=== PATIENT | female | born 2005 | race Caucasian/White ===

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

== ENCOUNTER 2024-04-01 11:59 | Emergency (ER) | payer OTHER ==
[~2024-04-01] VITALS: Ht 149.9 cm; Wt 52.6 kg
[2024-04-01] MEDS ORDERED: ACETAMINOPHEN 500 MG GEL..CAP PO STA (14:35)
[2024-04-01] MEDS ORDERED: 0.9 % SODIUM CHLORIDE 1,000 ML IV STA (14:35)
[2024-04-01 15:45] LABS: HEMATOCRIT 28.5 % (36.0-45.00); MEAN CELL VOLUME 90.4 fL (80.00-100.00); MEAN CORPUSCULAR HEMOGLOBIN 31.7 pg (27.00-32.0); MEAN CORPUSCULAR HGB CONC 35.1 g/dl (32.0-36.0); PLATELET COUNT 278 K/uL (150-450); RED BLOOD COUNT 3.15 M/uL (4.00-6.00); RED CELL DISTRIBUTION WIDTH 12.9 % (11.5-14.5)
[2024-04-01 16:05] LABS: PH,URINE 6.5 (5.0-8.0); URINE APPEARANCE Cloudy; URINE BILIRRUBIN Negative (NEGATIVE); URINE BLOOD Negative; URINE COLOR Yellow; URINE GLUCOSE Negative (NEGATIVE); URINE LEUKOCYTE Moderate; URINE NITRATE Negative; URINE PROTEIN Trace (NEGATIVE)
[2024-04-01 16:08] LABS: URINE EPITHELIAL CELLS 88.7 uL (0.0-38.8); URINE RBC 18.6 uL (0.0-20.8); URINE WBC 93.8 uL (0.0-23.2)
[2024-04-01 16:20] LABS: ALBUMIN 2.9 gm/dL (3.4-5.0); BILIRUBIN TOTAL 0.21 mg/dL (0.3-1.2); CALCIUM 8.4 mg/dL (8.5-10.1); CREATININE SERUM 0.4 mg/dL (0.55-1.02); GFR 205.62; GLOBULINA 3.8 G/DL (2.4-3.5); POTASSIUM 3.57 mEq/L (3.5-5.1); TOTAL PROTEIN 6.7 gm/dL (6.4-8.2); TSH 0.377 uIU/mL (0.358-3.74)
[2024-04-01 16:24] LABS: URINE BACTERIA > 9821.5 uL (0.0-1933); URINE CAST 0.91 uL (0.0-1.40); URINE KETONE >=160 (NEGATIVE)
[2024-04-01] MEDS ORDERED: CEFADROXIL500 MG PO (17:07)
[2024-04-01] MEDS ORDERED: CEFTRIAXONE SODIUM 1,000 MG VIAL IV ONE (17:15)
[2024-04-01 17:58] VITALS: BP 83/51; O2SAT 99
== END 2024-04-01 17:59 | disposition home or self-care (01) ==
LOC: ER 12:01
PROVIDERS: General Practice
DX: R53.81 Other malaise (principal); E86.0 Dehydration; N39.0 Urinary tract infection, site not specified; Z20.822 Contact with and (suspected) exposure to COVID-19

== ENCOUNTER 2025-05-13 08:37 | Emergency (ER) | payer OTHER ==
[~2025-05-13] VITALS: Ht 149.9 cm; Wt 48.1 kg
[~2025-05-13 08:37] MED LIST changes: +CEFADROXIL500 MG PO
[2025-05-13] MEDS ORDERED: CETIRIZINE HCL 10 MG TABLET PO STA (10:43)
[2025-05-13] MEDS ORDERED: METHYLPREDNISOLONE SOD SUCC 40 MG VIAL IV SCH (10:43)
[2025-05-13] MEDS ORDERED: FAMOTIDINE/PF 20 MG/2 ML VIAL IV STA (10:44)
[2025-05-13] MEDS ORDERED: ONDANSETRON HCL 2 MG/ML VIAL IV SCH (10:44)
[2025-05-13] MEDS ORDERED: ALBUTEROL SULFATE 3 ML/2.5 MG AMPUL.NEB IH SCH (10:45)
[2025-05-13] MEDS ORDERED: 0.9 % SODIUM CHLORIDE 500 ML IV SCH (10:45)
[2025-05-13] MEDS ORDERED: 0.9 % SODIUM CHLORIDE 500 ML IV ONE (10:45)
[2025-05-13] MEDS ORDERED: ONDANSETRON HCL 2 MG/ML VIAL ONE (11:21)
[2025-05-13] MEDS ORDERED: WATER FOR INJ.,BACTERIOSTATIC 30 ML VIAL IJ ONE (11:22)
[2025-05-13] MEDS ORDERED: METHYLPREDNISOLONE SOD SUCC 40 MG VIAL ONE (11:22)
[2025-05-13] MEDS ORDERED: FAMOTIDINE/PF 20 MG/2 ML VIAL ONE (11:22)
[2025-05-13 11:42] LABS: BASO % 0.2 % (0.1-1.2); EOS # 0.03 (0.04-0.54); EOS % 0.6 % (0.7-7.0); LYMPH # 0.99 (1.18-3.74); LYMPH % 20.5 % (19.3-53.1); MEAN PLATELET VOLUME 10.00 fl (9.4-12.4); MONO # 0.53 (0.24-0.82); MONO % 11.0 % (4.7-12.5); NEUT # 3.27 (1.56-6.13); NEUT % 67.5 % (34.0-71.1); RED CELL DISTRIBUTION WIDTH 14.8 % (11.6-14.4)
[2025-05-13] MEDS ORDERED: ALBUTEROL SULFATE 3 ML/2.5 MG AMPUL.NEB IH ONE (12:02)
[2025-05-13] MEDS ORDERED: NASAL MIST126 ML NASAL (13:37)
[2025-05-13] MEDS ORDERED: GUAIFENESIN400 MG PO (13:37)
[2025-05-13] MEDS ORDERED: ALBUTEROL2.5 MG/3 M IH (13:37)
[2025-05-13] MEDS ORDERED: OSEL75CA PO (13:37)
[2025-05-13] MEDS ORDERED: PEPCID AC20 MG PO (13:38)
[2025-05-13] MEDS ORDERED: ACETAMINOPHEN 500 MG GEL..CAP PO ONE ×2 (14:18→14:30)
== END 2025-05-13 16:29 | disposition home or self-care (01) ==
LOC: ER 08:38 → EMR PED 08:40 → ER 08:40 → EMR PED 16:29
PROVIDERS: Pediatrics
DX: J10.1 Influenza due to other identified influenza virus with other respiratory manifestations (principal)